=== PATIENT | female | born 1970 | race Two or more races ===

== ENCOUNTER 2017-10-24 00:47 | Emergency (ER) | payer MEDICAID, SELFPAY ==
[~2017-10-24] VITALS: Ht 147.3 cm; Wt 106.4 kg
[2017-10-24 05:05] VITALS: BP 129/88
== END 2017-10-24 05:12 | disposition home or self-care (01) ==
LOC: ED 04:55
DX: H65.01 Acute serous otitis media, right ear (principal); J00 Acute nasopharyngitis [common cold]; E11.9 Type 2 diabetes mellitus without complications
CPT/HCPCS: 71046; 93005; 99284